=== PATIENT | female | born 2000 | race Caucasian/White ===

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

== ENCOUNTER 2021-04-05 22:12 | Emergency (ER) | payer OTHER ==
[~2021-04-05] VITALS: Ht 165.1 cm; Wt 54.4 kg
[2021-04-05 23:49] VITALS: BP 93/72
== END 2021-04-05 23:45 | disposition home or self-care (01) ==
LOC: M.ERS 22:12
DX: S93.492A Sprain of other ligament of left ankle, initial encounter (principal); Z90.89 Acquired absence of other organs; X50.1XXA Overexertion from prolonged static or awkward postures, initial encounter; Y93.89 Activity, other specified; Y92.89 Other specified places as the place of occurrence of the external cause; Y99.8 Other external cause status